=== PATIENT | male | born 1995 | race Caucasian/White ===

== ENCOUNTER 2022-04-04 17:16 | Emergency (ER) | payer BC, OTHER ==
[~2022-04-04] VITALS: Ht 193 cm; Wt 92.5 kg
--- NOTE | 2022-04-04 17:26 | ED General ---
General Stated Complaint: TACHY History of Present Illness Date Seen by Provider: Apr 04, 2022 Time Seen by Provider: 17:26 Initial Comments 26-year-old male is brought in by EMS from [facility] with complaints of tachycardia and palpitations which have been going on for 2 hours. Patient stated that he has had a similar episode a couple of years ago and was found to have a potassium imbalance. Patient does not have a cardiac history, and no congenital cardiac disorders. Denies fever, URI symptoms, shortness of breath, chest pain, abdominal pain, dizziness, blurry vision. Patient stated that he smoked marijuana yesterday, but he smokes everyday. Patient feels better in the ER since his heart rate has come down. Allergies and Home Medications Allergies Coded Allergies: No Known Drug Allergies (Unverified , 04/04/22) Patient Home Medication List Home Medication List Reviewed: Yes Review of Systems Review of Systems Constitutional: no symptoms reported EENTM: no symptoms reported Respiratory: no symptoms reported Cardiovascular: palpitations Gastrointestinal: no symptoms reported Genitourinary: no symptoms reported Musculoskeletal: no symptoms reported Skin: no symptoms reported Psychiatric/Neurological: No Symptoms Reported Hematologic/Lymphatic: No Symptoms Reported Immunological/Allergic: no symptoms reported Physical Exam Vital Signs Vital Signs - First Documented 04/04/22 17:16 Temp 37.0 Pulse 124 Resp 20 B/P (MAP) 147/101 (116) O2 Delivery Room Air Capillary Refill : Height, Weight, BMI Height: '" Weight: lbs. oz. kg; BMI Method: General Appearance: No Apparent Distress, WD/WN, Thin HEENT: PERRL/EOMI Neck: Full Range of Motion, Normal Inspection Respiratory: Chest Non Tender, Lungs Clear, Normal Breath Sounds Cardiovascular: No Edema, No Murmur, Tachycardia (mild: 105-115) Gastrointestinal: Normal Bowel Sounds, Non Tender, Soft Back: No CVA Tenderness Neurologic/Psychiatric: Alert, Oriented x3, No Motor/Sensory Deficits Skin: Normal Color Progress/Results/Core Measures Suspected Sepsis SIRS Temperature: Pulse: Respiratory Rate: Laboratory Tests 04/04/22 17:30: White Blood Count 6.2 Blood Pressure / Mean: Laboratory Tests 04/04/22 17:30: Platelet Count 251 04/04/22 17:43: Creatinine 0.93, INR Comment 1.0, Total Bilirubin 0.8 Results/Orders Lab Results Laboratory Tests Test 04/04/22 17:30 04/04/22 17:43 Range/Units White Blood Count 6.2 4.3-11.0 10^3/uL Red Blood Count 5.16 4.30-5.52 10^6/uL Hemoglobin 15.1 13.3-17.7 g/dL Hematocrit 43 40-54 % Mean Corpuscular Volume 83 80-99 fL Mean Corpuscular Hemoglobin 29 25-34 pg Mean Corpuscular Hemoglobin Concent 35 32-36 g/dL Red Cell Distribution Width 12.6 10.0-14.5 % Platelet Count 251 130-400 10^3/uL Mean Platelet Volume 9.0 9.0-12.2 fL Immature Granulocyte % (Auto) 0 % Neutrophils (%) (Auto) 61 42-75 % Lymphocytes (%) (Auto) 31 12-44 % Monocytes (%) (Auto) 6 0-12 % Eosinophils (%) (Auto) 1 0-10 % Basophils (%) (Auto) 0 0-10 % Neutrophils # (Auto) 3.8 1.8-7.8 10^3/uL Lymphocytes # (Auto) 1.9 1.0-4.0 10^3/uL Monocytes # (Auto) 0.4 0.0-1.0 10^3/uL Eosinophils # (Auto) 0.1 0.0-0.3 10^3/uL Basophils # (Auto) 0.0 0.0-0.1 10^3/uL Immature Granulocyte # (Auto) 0.0 0.0-0.1 10^3/uL Prothrombin Time 13.9 12.2-14.7 SEC INR Comment 1.0 0.8-1.4 Activated Partial Thromboplast Time 29 24-35 SEC D-Dimer 0.03 0.00-0.49 UG/ML Urine Color YELLOW Urine Clarity CLEAR Urine pH 7.5 5-9 Urine Specific [place] <=1.005 1.016-1.022 Urine Protein NEGATIVE NEGATIVE Urine Glucose (UA) NEGATIVE NEGATIVE Urine Ketones TRACE H NEGATIVE Urine Nitrite NEGATIVE NEGATIVE Urine Bilirubin NEGATIVE NEGATIVE Urine Urobilinogen 0.2 < = 1.0 MG/DL Urine Leukocyte Esterase NEGATIVE NEGATIVE Urine RBC (Auto) NEGATIVE NEGATIVE Urine RBC NONE /HPF Urine WBC RARE /HPF Urine Squamous Epithelial Cells 0-2 /HPF Urine Crystals NONE /LPF Urine Bacteria NEGATIVE /HPF Urine Casts NONE /LPF Urine Mucus NEGATIVE /LPF Urine Culture Indicated NO Sodium Level 138 135-145 MMOL/L Potassium Level 3.1 L 3.6-5.0 MMOL/L Chloride Level 100 98-107 MMOL/L Carbon Dioxide Level 23 21-32 MMOL/L Anion Gap 15 H 5-14 MMOL/L Blood Urea Nitrogen 11 7-18 MG/DL Creatinine 0.93 0.60-1.30 MG/DL Estimat Glomerular Filtration Rate 116 BUN/Creatinine Ratio 12 Glucose Level 97 70-105 MG/DL Calcium Level 9.7 8.5-10.1 MG/DL Corrected Calcium 8.5-10.1 MG/DL Magnesium Level 1.7 1.6-2.4 MG/DL Total Bilirubin 0.8 0.1-1.0 MG/DL Aspartate Amino Transf (AST/SGOT) 21 5-34 U/L Alanine Aminotransferase (ALT/SGPT) 37 0-55 U/L Alkaline Phosphatase 57 40-136 U/L Troponin I < 0.30 <0.30 NG/ML Total Protein 6.7 6.4-8.2 GM/DL Albumin 4.7 H 3.2-4.5 GM/DL Urine Opiates Screen NEGATIVE NEGATIVE Urine Oxycodone Screen NEGATIVE NEGATIVE Urine Methadone Screen NEGATIVE NEGATIVE Urine Propoxyphene Screen NEGATIVE NEGATIVE Urine Barbiturates Screen NEGATIVE NEGATIVE Ur Tricyclic Antidepressants Screen NEGATIVE NEGATIVE Urine Phencyclidine Screen NEGATIVE NEGATIVE Urine Amphetamines Screen POSITIVE H NEGATIVE Urine Methamphetamines Screen NEGATIVE NEGATIVE Urine Benzodiazepines Screen NEGATIVE NEGATIVE Urine Cocaine Screen NEGATIVE NEGATIVE Urine Cannabinoids Screen POSITIVE H NEGATIVE My Orders Orders - JT REINOSO MD Drug Screen Stat (Urine) (04/04/22 17:26) Ua Culture If Indicated (04/04/22:26) Cbc With Automated Diff (04/04/22 17:36) Comprehensive Metabolic Panel (04/04/22 17:36) Fibrin Degradation Products (04/04/22 17:36) Magnesium (04/04/22 17:36) Protime With Inr (04/04/22 17:36) Partial Thromboplastin Time (04/04/22 17:36) Troponin I Fs (04/04/22 17:36) Continuous Ekg Monitoring (04/04/22 17:36) Ekg Tracing (11/6/22 17:36) Chest 1 View Ap/Pa Only (04/04/22 17:38) Ed Iv/Invasive Line Start (04/04/22 18:21) Ns Iv 1000 Ml (Sodium Chloride 0.9%) (04/04/22 18:30) Potassium Cl 10meq/50ml Ivpb (Kcl 10 Meq (04/04/22 18:21) Potassium Chloride (Tablet) (K Dur Table (04/04/22 18:21) Vital Signs/I&O 04/04/22 17:16 Temp 37.0 Pulse 124 Resp 20 B/P (MAP) 147/101 (116) O2 Delivery Room Air Capillary Refill : Progress Note : Progress Note 1. SINUS TACHYCARDIA / HYPOKALEMIA: - CXR: no acute changes - EKG: sinus tachycardia - Troponin undetected - CBC/ CMP : s. K+ is 3.1 - UA/ UDS: positive for amphetamines and marijuana -Advised to stop using amphetamines and marijuana since that will trigger hypokalemia, advised to stop any type of smoking or secondhand smoke, alcohol, caffeine. Advised potassium rich diet -Follow-up with PCP within the next 3 to 5 days for repeat lab work to check the potassium level. -Prescription for oral potassium 40mEq given for the next 3 days. -The patient was seen in the ED, and treated appropriately to presentation at a specific point in time. Patient is informed that there is a possibility that disease and illness can evolve and change in acuity rapidly or slowly after patient is discharged from the ER. Precautionary advice given to the patient for immediate return to ER if symptoms worsen or do not resolve, and to seek emergency care sooner rather than later. Pt also advised on the importance of PCP follow up and compliance with management and follow up plan with PCP and/or specialist, as this is part of the management plan. Pt verbally expressed understanding. Diagnostic Imaging Diagonstic Imaging: Xray Plain Films/CT/US/NM/MRI: chest Comments [facility]. [facility], [place] NAME: PEREZ [facility]ENJIVAR [facility] REC#: [id number] PT STATUS: REG ER : 1995 PHYSICIAN: JT REINOSO MD ADMIT DATE: 04/04/22/ER FS Draft Date of Exam:04/04/22 CHEST 1 VIEW AP/PA ONLY INDICATION: Tachycardia. EXAMINATION: Portable AP view of the chest was obtained. COMPARISON: No previous study is available for comparison at this time. FINDINGS: Heart size and pulmonary vasculature are within normal limits, and the lungs are clear, bilaterally. IMPRESSION: Unremarkable chest. Dictated on workstation # [id number] Dict: 04/04/221833 Trans: 04/04/221837 [facility] [id number] Interpreted by: MARTY PEREZ MD Electronically signed by: Departure Impression Primary Impression: Sinus tachycardia Additional Impressions: Hypokalemia Marijuana abuse Amphetamine abuse Disposition: HOME, SELF-CARE Condition: Improved Departure-Patient Inst. Referrals: ANDRE ALBRIGHT APRN (PCP) Primary Care Physician MICHAEL,[facility] PHYSICIAN (Family) Primary Care Physician Patient Instructions: Sinus Tachycardia (DC), High Potassium Diet, Hypokalemia (DC), Marijuana Use and Addiction Add. Discharge Instructions: -Advised to stop using amphetamines and marijuana since that will trigger hypokalemia, advised to stop any type of smoking or secondhand smoke, alcohol, caffeine. Advised potassium rich diet -Follow-up with PCP within the next 3 to 5 days for repeat lab work to check the potassium level. -Prescription for oral potassium 40mEq given for the next 3 days. -Patient is informed that there is a possibility that disease and illness can evolve and change in acuity rapidly or slowly after patient is discharged from the ER. Precautionary advice given to the patient for immediate return to ER if symptoms worsen or do not resolve, and to seek emergency care sooner rather than later. Pt also advised on the importance of PCP follow up and compliance with management and follow up plan with PCP and/or specialist, as this is part of the management plan. Scripts Potassium Chloride (Potassium Chloride) 40 Meq/15 Ml Liquid 40 MEQ PO DAILY for 3 Days, #3 EA Prov: JT REINOSO MD 04/04/22 JT REINOSO MD Apr 04, 2022 17:26
[2022-04-04 17:47] LABS: BASOPHILS % (AUTO) 0 % (0-10); EOSINOPHILS # (AUTO) 0.1 10^3/uL (0.0-0.3); EOSINOPHILS % (AUTO) 1 % (0-10); HEMATOCRIT 43 % (40-54); HEMOGLOBIN 15.1 g/dL (13.3-17.7); LYMPHOCYTES # (AUTO) 1.9 10^3/uL (1.0-4.0); LYMPHOCYTES % (AUTO) 31 % (12-44); MEAN CORPUSCULAR HEMOGLOBIN 29 pg (25-34); MEAN CORPUSCULAR HGB CONC 35 g/dL (32-36); MEAN CORPUSCULAR VOLUME 83 fL (80-99); MONOCYTES # (AUTO) 0.4 10^3/uL (0.0-1.0); MONOCYTES % (AUTO) 6 % (0-12); NEUTROPHILS # (AUTO) 3.8 10^3/uL (1.8-7.8); NEUTROPHILS % (AUTO) 61 % (42-75); PLATELET COUNT 251 10^3/uL (130-400); WHITE BLOOD COUNT 6.2 10^3/uL (4.3-11.0)
[2022-04-04 17:51] LABS: BILIRUBIN,URINE NEGATIVE (NEGATIVE); CLARITY,URINE CLEAR; COLOR,URINE YELLOW; GLUCOSE, URINE (UA) NEGATIVE (NEGATIVE); KETONES,URINE TRACE (NEGATIVE); LEUKOCYTE ESTERASE ,URINE NEGATIVE (NEGATIVE); NITRITE,URINE NEGATIVE (NEGATIVE); PH,URINE 7.5 (5-9); PROTEIN,URINE NEGATIVE (NEGATIVE)
[2022-04-04 17:55] LABS: BACTERIA,URINE NEGATIVE /HPF; SQUAMOUS EPITHELIAL CELL,UR 0-2 /HPF; WBC,URINE RARE /HPF
[2022-04-04 18:01] LABS: AMPHETAMINE SCREEN, URINE POSITIVE (NEGATIVE); BARBITURATE SCREEN URINE NEGATIVE (NEGATIVE); BENZODIAZEPINES SCREEN URINE NEGATIVE (NEGATIVE); BUN/CREATININE RATIO 12; CANNABINOID SCREEN, URINE POSITIVE (NEGATIVE); CARBON DIOXIDE 23 MMOL/L (21-32); CHLORIDE 100 MMOL/L (98-107); COCAINE SCREEN URINE NEGATIVE (NEGATIVE); CREATININE SERUM 0.93 MG/DL (0.60-1.30); GFR ESTIMATED 116; METHADONE STAT NEGATIVE (NEGATIVE); OPIATE SCREEN URINE NEGATIVE (NEGATIVE); OXYCODONE STAT NEGATIVE (NEGATIVE); POTASSIUM 3.1 MMOL/L (3.6-5.0); PROPOXYPHENE STAT NEGATIVE (NEGATIVE); SODIUM 138 MMOL/L (135-145); TRICYCLIC ANTIDEPRESSANTS SCRE NEGATIVE (NEGATIVE)
[2022-04-04 18:02] LABS: ALANINE AMINOTRANSFERASE 37 U/L (0-55); ALBUMIN 4.7 GM/DL (3.2-4.5); ALKALINE PHOSPHATASE 57 U/L (40-136); BILIRUBIN,TOTAL 0.8 MG/DL (0.1-1.0); CALCIUM 9.7 MG/DL (8.5-10.1); GLUCOSE 97 MG/DL (70-105); MAGNESIUM 1.7 MG/DL (1.6-2.4); TOTAL PROTEIN 6.7 GM/DL (6.4-8.2)
[2022-04-04 18:05] LABS: PROTHROMBIN TIME PATIENT 13.9 SEC (12.2-14.7)
[2022-04-04 18:13] LABS: FIBRIN DEGRADATION PRODUCTS 0.03 UG/ML (0.00-0.49)
[2022-04-04] MEDS ORDERED: POTASSIUM CL 10MEQ/50ML IVPB 50 ML IV STA (18:21)
[2022-04-04] MEDS ORDERED: KCL 20 MEQ TAB (K-DUR) PO STA (18:21)
[2022-04-04] MEDS ORDERED: NS IV 1000 ML 1,000 ML IV SCH (18:30)
--- NOTE | 2022-04-04 18:39 | Diagnostic Imaging Report ---
INDICATION: Tachycardia. EXAMINATION: Portable AP view of the chest was obtained. COMPARISON: No previous study is available for comparison at this time. FINDINGS: Heart size and pulmonary vasculature are within normal limits, and the lungs are clear, bilaterally. IMPRESSION: Unremarkable chest. Dictated by: Dictated on workstation # [id number]
[2022-04-04] MEDS ORDERED: POTA40LI3 PO ×2 (19:24→19:40)
[2022-04-04 19:32] VITALS: BP 138/92
== END 2022-04-04 19:34 | disposition home or self-care (01) ==
LOC: ER FS 17:19
DX: F12.10 Cannabis abuse, uncomplicated (principal); F15.10 Other stimulant abuse, uncomplicated; E87.6 Hypokalemia; F17.200 Nicotine dependence, unspecified, uncomplicated
CPT/HCPCS: 36415; 71045; 80053; 80306; 81000; 83735; 84484; 85025; 85379; 85610; 85730; 93005